=== PATIENT | female | born 1995 | race Caucasian/White ===

== ENCOUNTER 2020-05-19 09:56 | Inpatient (IN) ==
[2020-05-19 11:18] LABS: Hematocrit 35.6 % (37.0-47.0); Hemoglobin 11.4 gm/dL (12.5-16.0); Mean Cell Volume 83.6 fl (78-100); Mean Corpuscular Hemoglobin 26.8 pg (27-31); Mean Platelet Volume 11.4 fl (8-12.5); Platelet Count 301 K/mm3 (150-450); Red Blood Count 4.26 M/mm3 (4.2-5.4); White Blood Count 12.8 K/mm3 (4.0-10.5)
[2020-05-19 11:27] LABS: Albumin * 2.3 gm/dl (3.4-5.0); Anion Gap 16.7 mmol/L (6.8-13.8); BUN/Creatinine Ratio 12.7 (9.0-21.6); Bilirubin, Total 0.2 mg/dL (0.0-1.1); Ca. Corrected For Albumin 9.6 mg/dL (8.4-10.2); Calcium * 8.6 mg/dL (7.9-10.9); Potassium 3.7 mmol/L (3.4-4.6); Total Protein 6.8 gm/dL (6.2-8.2)
[2020-05-19 11:33] LABS: Total Cells Counted 100
[2020-05-19 11:48] LABS: Random Urine Total Protein 22.3 mg/dL (0-12)
[2020-05-19 12:29] LABS: Band 8 % (0-2.0); Basophil 1 % (0-1); Lymphocyte 13 % (20-51); Monocyte 7 % (0-9); Neutrophil 71 % (42-75); Neutrophil # 9.1 K/mm3 (1.3-6.0)
[2020-05-19 12:31] LABS: Platelet Estimate Normal (NORMAL); RBC Morphology Normal (NORMAL)
[2020-05-19] MEDS ORDERED: RINGER'S SOLUTION,LACTATED 1,000 ML IV PRN (17:55)
[2020-05-19] MEDS ORDERED: RINGER'S SOLUTION,LACTATED 1,000 ML IV ONE (17:55)
[2020-05-19] MEDS ORDERED: LIDOCAINE HCL 50 ML VIAL PERI PRN (17:55)
[2020-05-19] MEDS ORDERED: BUTORPHANOL TARTRATE 2 MG/ML VIAL IV PRN ×2 (17:55)
[2020-05-19] MEDS ORDERED: ONDANSETRON 4 MG TAB.RAPDIS PO PRN (17:55)
[2020-05-19] MEDS ORDERED: OXYTOCIN/0.9 % SODIUM CHLORIDE 30 UNITS/500 ML BAG IV ONE ×2 (17:55→18:37)
--- NOTE | 2020-05-19 17:55 | HP ---
Chief Complaint - Chief Complaint Date of Service: 05/19/20 Time of Service: 17:47 Chief Complaint: induction History of Present Illness: 24 year old at 39w 0d who presented to the office for an obstetrical visit and was found to have elevated BPs. She was sent to L&D for BP monitoring and was found to have several elevated BPs. She reports a headache on and off. Denies vb or lof. Fetus is active. She is feeling ctx q 2 minutes. Medical History (Last Reviewed 05/19/20 @ 17:49 by Chantal Elizabeth MD) Anxiety Surgical History: Surgical History (Last Reviewed 05/19/20 @ 17:49 by Chantal Elizabeth MD) [place] teeth extracted Family History: Family History (Last Reviewed 05/19/20 @ 17:49 by Chantal Elizabeth MD) Mother Hypertension Cuevas's palsy affecting Father Alive and well Social History: (Last Updated 05/19/20 @ 10:23 by Chantal Elizabeth MD) Social History: adopted: No Marital status: household members: spouse number of children: 0 current occupational status: employed current occupation: [employer] Highest level of school completed/degree received: Bachelor's degree Sexually Active: Yes Tobacco: Smoking Status: Never smoker Alcohol: alcohol intake: never details: Stopped with Substance Use: substance use type: does not use Dietary Habits: caffeine: Yes caffeine comment: 2-3 daily Type: coffee Review Of Systems (GEN) - Review of Systems Generalized/Overall Review: Present: No Symptoms Reported Misc: All systems neg except as marked Allergies/Adverse Reactions: Allergies Allergy/AdvReac Type Severity Reaction Status Date / Time Sulfa (Sulfonamide Allergy Severe Verified 05/19/20 09:41 Antibiotics) Home Medications: HOME MEDICATIONS acetaminophen 325 mg capsule 325 mg PO Q6H PRN 02/08/20 [Last Taken Unknown] breast pump See Rx Instructions .ROUTE .MEDSUPPLY #1 ea 04/07/20 [Last Taken Unknown] Vits96/Iron Fum/Folic [ S] 1 tab PO DAILY 05/19/20 [Last Taken Unknown] Exam - Exam Vital Signs: Vital Signs - Last Taken Temp 36.9 C 05/19/20 10:20 Pulse 86 05/19/20 10:20 Resp 18 05/19/20 10:20 BP 136/89 05/19/20 10:20 Pulse Ox 98 05/19/20 10:20 Constitutional: Present: Alert, Oriented x3, Cooperative, No distress ENT Exam: Present: hearing grossly normal Eye Exam: bilateral eye: normal inspection Neck: Present: normal inspection Back Exam: Present: normal inspection Breasts: Present: Exam deferred Respiratory: Present: lungs clear, normal breath sounds, no respiratory distress Cardiovascular/Chest: Present: regular rate, rhythm Abdomen: Present: soft, nontender, nondistended /Rectal: Present: Other - 1.5/60/-1 AROM for clear fluid Extremity: Present: non-tender, no calf tenderness Skin Exam: Present: warm/dry, no cyanosis Neurologic: Present: alert, normal mood/affect, oriented x 3 Appearance: Present: appropriate appearance, appropriate insight, neat, no memory impairment Eye contact: Present: cooperative, good eye contact, normal speech Thoughts: Present: normal thought pattern Diagnostic Studies: Abnormal Lab Results 05/19/20 05/19/20 05/19/20 Range/Units 11:00 11:09 11:09 WBC 12.8 H (4.0-10.5) K/mm3 Hgb 11.4 L (12.5-16.0) gm/dL Hct 35.6 L (37.0-47.0) % MCH 26.8 L (27-31) pg RDW 15.0 H (11.5-14.0) % Band Neuts % (Manual) 8 H (0-2.0) % Lymphocytes % (Manual) 13 L (20-51) % Neutrophils # (Manual) 9.1 H (1.3-6.0) K/mm3 Carbon Dioxide 22.0 L (24-32.6) mmol/L Anion Gap 16.7 H (6.8-13.8) mmol/L Random Glucose 67 L (70-110) mg/dL ALT 14 L (19-67) U/L Alkaline Phosphatase 201 H (50-170) U/L Albumin 2.3 L (3.4-5.0) gm/dl U Random Total Protein 22.3 H (0-12) mg/dL Laboratory Results WBC 12.8 K/mm3 (4.0-10.5) H 05/19/20 11:09 RBC 4.26 M/mm3 (4.2-5.4) 05/19/20 11:09 Hgb 11.4 gm/dL (12.5-16.0) L 05/19/20 11:09 Hct 35.6 % (37.0-47.0) L 05/19/20 11:09 MCV 83.6 fl (78-100) 05/19/20 11:09 MCH 26.8 pg (27-31) L 05/19/20 11:09 MCHC 32.0 g/dl (32-36) 05/19/20 11:09 RDW 15.0 % (11.5-14.0) H 05/19/20 11:09 Plt Count 301 K/mm3 (150-450) 05/19/20 11:09 MPV 11.4 fl (8-12.5) 05/19/20 11:09 Neutrophils % (Manual) 71 % (42-75) 05/19/20 11:09 Band Neuts % (Manual) 8 % (0-2.0) H 05/19/20 11:09 Lymphocytes % (Manual) 13 % (20-51) L 05/19/20 11:09 Monocytes % (Manual) 7 % (0-9) 05/19/20 11:09 Basophils % (Manual) 1 % (0-1) 05/19/20 11:09 Neutrophils # (Manual) 9.1 K/mm3 (1.3-6.0) H 05/19/20 11:09 Lymphocytes # (Manual) 1.7 k/mm3 (1.5-3.5) 05/19/20 11:09 Monocytes # (Manual) 0.9 k/mm3 (0.0-1.0) 05/19/20 11:09 Basophils # (Manual) 0.1 k/mm3 (0.0-0.1) 05/19/20 11:09 Platelet Estimate Normal (NORMAL) 05/19/20 11:09 RBC Morphology Normal (NORMAL) 05/19/20 11:09 Sodium 138 mmol/L (132-142) 05/19/20 11:09 Plasma Sodium 137 mmol/L (130-142) 05/19/20 11:09 Potassium 3.7 mmol/L (3.4-4.6) 05/19/20 11:09 Chloride 103 mmol/L (97-106) 05/19/20 11:09 Carbon Dioxide 22.0 mmol/L (24-32.6) L 05/19/20 11:09 Anion Gap 16.7 mmol/L (6.8-13.8) H 05/19/20 11:09 BUN 9 mg/dL (3-23) 05/19/20 11:09 Creatinine 0.71 mg/dL (0.4-1.4) 05/19/20 11:09 Est GFR (Non-Af Amer) 107 mL/min (60-130) 05/19/20 11:09 BUN/Creatinine Ratio 12.7 (9.0-21.6) 05/19/20 11:09 Random Glucose 67 mg/dL (70-110) L 05/19/20 11:09 Calcium 8.6 mg/dL (7.9-10.9) 05/19/20 11:09 Calcium Adj for Albumin 9.6 mg/dL (8.4-10.2) 05/19/20 11:09 Total Bilirubin 0.2 mg/dL (0.0-1.1) 05/19/20 11:09 AST 13 U/L (0-48) 05/19/20 11:09 ALT 14 U/L (19-67) L 05/19/20 11:09 Alkaline Phosphatase 201 U/L (50-170) H 05/19/20 11:09 Total Protein 6.8 gm/dL (6.2-8.2) 05/19/20 11:09 Albumin 2.3 gm/dl (3.4-5.0) L 05/19/20 11:09 Ur Random Creatinine 174.8 mg/dL (60-200) 05/19/20 11:00 U Random Total Protein 22.3 mg/dL (0-12) H 05/19/20 11:00 U [place] Prot/Creat Ratio 128 mg/gm (0-199) 05/19/20 11:00 Assessment/Plan - Narrative Narrative: 24 year old at 39w 0d 1. Proceed with medical IOL due to GHTN: AROM, start pitocin if no cervical change in 2 hours 2. 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
[2020-05-19] MEDS ORDERED: BENZOCAINE/MENTHOL 81 SPRAY CAN TP PRN (18:36)
[2020-05-19] MEDS ORDERED: diphenhydrAMINE HCL 25 MG CAPSULE PO PRN (18:37)
[2020-05-19] MEDS ORDERED: GLYCERIN/WITCH HAZEL LEAF 40 APPL BOX TP PRN (18:37)
[2020-05-19] MEDS ORDERED: BISACODYL 10 MG SUPP.RECT RC PRN (18:37)
[2020-05-19] MEDS ORDERED: SENNOSIDES 8.6 MG TABLET PO PRN (18:37)
[2020-05-19] MEDS ORDERED: HYDROcodone/ACETAMINOPHEN 1 EACH TABLET PO PRN ×2 (18:37)
[2020-05-19] MEDS ORDERED: HYDROCORTISONE 30 APPL TUBE TP PRN (18:37)
[2020-05-19] MEDS ORDERED: NALOXONE HCL 1 MG/1 ML SYRG IV PRN (20:17)
[2020-05-19] MEDS ORDERED: ONDANSETRON HCL/PF 2 MG/ML VIAL IV PRN (20:17)
[2020-05-19] MEDS ORDERED: BUPIVACAINE HCL/0.9 % NACL/PF 250 ML EP PRN (20:17)
[2020-05-19] MEDS ORDERED: BUPIVACAINE HCL/PF 30 ML VIAL EP SCH (20:30)
--- NOTE | 2020-05-19 20:51 | ANES ---
Anesthesia Pre Procedure Eval Vitals/Labs: Last Vital Signs Temp 36.9 C 05/19/20 10:20 Pulse 86 05/19/20 10:20 Resp 18 05/19/20 10:20 BP 136/89 05/19/20 10:20 Pulse Ox 98 05/19/20 10:20 HOME MEDICATIONS acetaminophen 325 mg capsule 325 mg PO Q6H PRN 02/08/20 [Last Taken Unknown] breast pump See Rx Instructions .ROUTE .MEDSUPPLY #1 ea 04/07/20 [Last Taken Unknown] Vits96/Iron Fum/Folic [ S] 1 tab PO DAILY 05/19/20 [Last Taken Unknown] Allergies/Adverse Reactions: Allergies Allergy/AdvReac Type Severity Reaction Status Date / Time Sulfa (Sulfonamide Allergy Severe Verified 05/19/20 09:41 Antibiotics) - Planned Procedure Planned Procedure: [place] Epidural Medication List Reviewed:: Yes Allergies Verified: Yes Medical History (Last Reviewed 05/19/20 @ 20:51 by Natalio Griffiths CRNA) Anxiety Surgical History (Last Reviewed 05/19/20 @ 20:51 by Natalio Griffiths CRNA) [place] teeth extracted Family History (Last Reviewed 05/19/20 @ 20:51 by Natalio Griffiths CRNA) Mother Hypertension Cuevas's palsy affecting Father Alive and well - Family Anesthesia History Family History:: no untoward family reactions to anesthesia, no familial bleeding tendencies, no family history of clotting disorders, no family history of premature - Anesthesia Assessment and Plan ASA Class: PS, II Anesthesia Type Plan: Epidural
--- NOTE | 2020-05-19 21:15 | ANES ---
Anesthesia Procedure Note Procedure Note: ANESTHESIA PROCEDURE NOTE Date of Procedure: 05/19/2020. Time of procedure: 2054. Performed by: Natalio Griffiths CRNA Floor Winder: None. Preprocedure diagnosis: Active labor. Post procedure diagnosis: Same. Procedure: Insertion of labor epidural. Indications: The patient is a 24-year-old female in active labor requesting labor epidural for pain management. Findings: See below. Details of the procedure: The patient was placed in a sitting position. DuraPrep as well as Betadine swabs X3 was applied to the patient's back. Patient was then draped in a sterile fashion. Lidocaine 1% was infiltrated to the skin and subcutaneous tissues at the level of the L3-4 interspace. The epidural space was identified using a 18-gauge Tuohy needle with [id number] technique. Epidural catheter was inserted to a depth of 13 centimeters at skin. Negative test dose was elicited using 3 mL of 1.5% preservative-free lidocaine plus epinephrine 1 200,000. The epidural catheter was then taped and secured in place. A loading dose of 8 mL of 0.25% preservative-free bupivacaine was administered to the epidural catheter after negative aspiration for blood and CSF. EBL: Minimal. Fluids: N/A. Specimen: N/A. Post procedure condition: The patient tolerated the procedure well. No complications were noted. Thank you for this consultation. Natalio Griffiths CRNA
--- NOTE | 2020-05-19 21:15 | ANES ---
Post Anesthesia Assessment - Vital Signs Vitals: Last Vital Signs Temp 36.9 C 05/19/20 10:20 Pulse 86 05/19/20 10:20 Resp 18 05/19/20 10:20 BP 136/89 05/19/20 10:20 Pulse Ox 98 05/19/20 10:20 Airway Patency: Normal - Mental Status Level Of Consciousness: Awake - N/V Assessment Nausea/Vomiting Presence: None Dehydration:: No
--- NOTE | 2020-05-20 04:53 | OR ---
Vacuum-Assist Vaginal Delivery Date:: 05/20/20 Time:: 04:50 Pre Op Diagnosis/Indication for use:: Prolonged second stage Heart Rate Interpretation:: Reassuring EFW:: 3600 grams Station:: +3 Position of the head: OA Cervix:: The cervix was completely dilated and effaced. Maternal- size appropriate for application. The bladder was emptied. Counseling:: Patient counseling: Indications discussed and questions answered. The patient consented to operative delivery. - Details of Procedure: Cup Placement:: Flexion point identified. Cup choice appropriate for application site. Maternal tissue excluded from vacuum cup. Station at application:: +3 Position:: OA Anesthesia Type: Epidural Laceration Type:: Perineal - Vacuum Application: Vacuum Used:: Mushroom Total Time of vacuum applications (minutes):: 1 - 30 seconds Maximum vacuum achieved: cm H Number of pulls/contractions:: 5 Number of involuntary releases:: 3 Vacuum event:: The vacuum was reduced between contractions. There was advancement in station with each pull. - Post Procedure Eval: Infant Sex: Female Weight (Grams): 3,612 Delivery Date: 05/20/20 Delivery Time: 04:24 Score 1 min: 9 Score 5 min: 9 Extraction successful:: No - vacuum did not obtain adequate suction due to hair Amniotic Fluid Color: Clear Placenta Delivery: Spontaneous injury/anomalies:: No Maternal EBL:: 300 Shoulder Dystocia:: No Nuchal Cord: Around neck x1, tight - Additional Comments: Comments:: Cord clamped at the perineum since unable to reduce it Cord blood was collected
[2020-05-20] MEDS: PRENATAL VITS96/IRON FUM/FOLIC 1 TAB TABLET PO SCH (10:06)
[2020-05-20] MEDS: DOCUSATE SODIUM 100 MG CAPSULE PO SCH ×3 (10:06→21:36)
[2020-05-20] MEDS: IBUPROFEN 800 MG TABLET PO PRN ×2 (11:24→19:22)
--- NOTE | 2020-05-20 17:30 | CONS ---
[facility] - General Date of Service: 05/20/20 Narrative: I was consulted by the in-house SUBSTATION OPERATOR APPRENTICE to evaluate a 24-year-old female during the period for an episode of tachycardia that occurred shortly after the patient had given . The patient had induced delivery due to elevated blood pressures that started yesterday. She had a prolonged second stage of labor but the rest of the labor was uneventful however shortly after the delivery she had an episode of an accelerated heart rate that went up to 200. The patient denied any chest pain or shortness of breath and says she has never had these symptoms before. She is a non-smoker does not consume alcohol and denies any drug use. She also denies any childhood cardiac diseases. Bedside evaluation revealed a patient that was relaxed and appeared to be in her normal state of health. Her vitals are now stable and her tachycardia has resolved. However given the presentation of of this unprovoked tachycardia, will place the patient on telemetry for close monitoring and watch her throughout the night. I will reevaluate this patient in the morning. Source: patient - History of Present Illness Timing/Duration: momentarily Allergies/Adverse Reactions: Allergies Sulfa (Sulfonamide Antibiotics) Allergy (Severe, Verified 05/19/20 09:41) Home Medications: Home Medications Medication Instructions Recorded Last Taken acetaminophen 325 mg capsule 325 mg PO Q6H PRN 02/08/20 Unknown breast pump See Rx Instructions .ROUTE 04/07/20 Unknown .MEDSUPPLY #1 ea Vits96/Iron Fum/Folic 1 tab PO DAILY 05/19/20 Unknown [ S] Medications - Medications Current Medications: Current Medications Benzocaine/Menthol (Benzocaine/Menthol 81 [place] Can) 1 spray TP PRN PRN PRN Reason: Perineal discomfort Stop: 06/18/20 18:37 Last Admin: 05/20/20 10:06 Dose: 1 spray Documented by: Docusate Sodium (Docusate Sodium 100 Mg Capsule) 100 mg PO BID BRENDAN Stop: 06/18/20 21:01 Last Admin: 05/20/20 10:06 Dose: 100 mg Documented by: Lactated Ringer's (Lactated Ringers) 1,000 mls @ 125 mls/hr IV .Q8H PRN PRN Reason: HYDRATION Stop: 06/18/20 17:56 Last Infusion: 05/20/20 11:25 Dose: Infused Documented by: Oxytocin/Sodium Chloride (Pitocin 30 Units/Ns 0.9% 500 Ml) 30 units in 500 mls @ 2 mls/hr IV PRN ONE; Protocol Stop: 05/30/20 03:54 Last Infusion: 05/20/20 15:49 Dose: 0 mls/hr Documented by: Bupivacaine HCl/Sodium Chloride (Bupivacaine 0.125% In Ns 0.9% Cassette) 250 mls @ 0 mls/hr EP Q24H PRN; Protocol PRN Reason: LABOR PAIN Stop: 06/18/20 20:18 Last Admin: 05/19/20 21:48 Dose: 12 mls/hr Documented by: Ibuprofen (Ibuprofen 800 Mg Tablet) 800 mg PO Q6H PRN PRN Reason: Mild pain (pain scale 1-3) Stop: 06/18/20 18:38 Last Admin: 05/20/20 11:24 Dose: 800 mg Documented by: Multivit/Folic Acid/Iron ( Vits96/Iron Fum/Folic 1 Tab Tablet) 1 tab PO DAILY BRENDAN Stop: 06/19/20 09:01 Last Admin: 05/20/20 10:06 Dose: 1 tab Documented by: Witch Di/Glycerin (Glycerin/Witch Di [place] 40 Appl Box) 1 appl TP PRN PRN PRN Reason: Perineal discomfort Stop: 06/18/20 18:38 Last Admin: 05/20/20 08:59 Dose: 1 appl Documented by: Physical Examination - Exam Vital Signs: Vital Signs - Last Taken Temp 36.3 C 05/20/20 15:19 Pulse 96 05/20/20 15:19 Resp 18 05/20/20 15:19 BP 131/82 05/20/20 15:19 Pulse Ox 98 05/20/20 15:19 O2 Oxygen Delivery Method Room Air Constitutional: Present: Alert, Oriented x3, Cooperative, Well developed, Young, Morbidly obese ENT Exam: Present: normal ENT inspection, hearing grossly normal, pharynx normal Eye Exam: bilateral eye: normal inspection, PERRL, EOMI Respiratory: Present: chest non-tender, lungs clear, normal breath sounds, no respiratory distress, no accessory muscle use Cardiovascular/Chest: Present: normal peripheral pulses, regular rate, rhythm, no chest tenderness, no edema, no gallop, no JVD, no murmur, no rub Peripheral Pulses: dorsalis-pedis (R): 3+, dorsalis-pedis (L): 3+ - Assessments/Findings (1) Tachycardia Problem: Resolved (2) cardiac complication Problem: Acute
[2020-05-21] MEDS: DOCUSATE SODIUM 100 MG CAPSULE PO SCH ×3 (07:52→20:52)
[2020-05-21] MEDS: IBUPROFEN 800 MG TABLET PO PRN ×2 (07:52→17:04)
[2020-05-21] MEDS: PRENATAL VITS96/IRON FUM/FOLIC 1 TAB TABLET PO SCH ×2 (07:53→15:50)
--- NOTE | 2020-05-21 11:50 | PN ---
Subjective - Date and Time Seen Date: 05/21/20 Time: 11:49 Subjective Narrative: Patient without complaints Objective Objective Narrative: See vital signs - Review of Systems Generalized/Overall Review: Reports: No Symptoms Reported Misc: All systems neg except as marked - Vitals Vitals: Last Vital Signs Temp 36.4 C 05/21/20 07:40 Pulse 78 05/21/20 10:06 Resp 18 05/21/20 07:40 BP 130/70 05/21/20 07:40 Pulse Ox 99 05/21/20 07:40 - Exam Constitutional: Present: Alert, Oriented x3, Cooperative, No distress ENT Exam: Present: hearing grossly normal Neck: Present: normal inspection Breasts: Present: Exam deferred Skin Exam: Present: normal color, warm/dry, no cyanosis Appearance: Present: appropriate appearance, appropriate insight, neat, no memory impairment Eye contact: Present: cooperative, good eye contact Thoughts: Present: normal thought pattern Cauti Physician Documentation - Urinary Catheter Management Urethral (Crum) Urethral Indwelling: No Date of Insertion: 05/19/20 Time of Insertion: 21:55 Date of Removal: 05/20/20 Time of Removal: 03:30 Assessment/Plan Plan Narrative: PPD 1 s/p Doing well Discharge tomorrow - Problems/Diagnosis (1) Gestational hypertension Problem: Acute Qualifiers: Trimester: third trimester Qualified Code(s): O13.3 - Gestational [-induced] hypertension without significant proteinuria, third trimester (2) 39 weeks gestation of Problem: Acute (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
--- NOTE | 2020-05-21 12:16 | PN ---
Progess Note - Interim Date: 05/21/20 Time: 12:15 Narrative: 05/21/20 12:15 Patient had an uneventful night, there was no recurrence of tachycardia so no new treatments were necessary. OB is planning on discharging her tomorrow. There are no further recommendations on my part.
[2020-05-22] MEDS: IBUPROFEN 800 MG TABLET PO PRN ×2 (04:16→12:40)
[2020-05-22 08:27] VITALS: BP 132/71
--- NOTE | 2020-05-22 09:40 | PN ---
Subjective - Date and Time Seen Date: 05/22/20 Time: 09:33 Subjective Narrative: Patient without complaints Objective Objective Narrative: See vital signs - Review of Systems Generalized/Overall Review: Reports: No Symptoms Reported Misc: All systems neg except as marked - Vitals Vitals: Last Vital Signs Temp 36.5 C 05/22/20 07:10 Pulse 65 05/22/20 07:10 Resp 20 05/22/20 07:10 BP 132/71 05/22/20 07:10 Pulse Ox 99 05/22/20 07:10 - Exam Constitutional: Present: Alert, Oriented x3, Cooperative, No distress ENT Exam: Present: hearing grossly normal Neck: Present: normal inspection Breasts: Present: Exam deferred Abdomen: Present: soft, nontender, nondistended /Rectal: Present: Exam deferred Extremity: Present: non-tender, calf tenderness - on the right, leg pain, pedal edema Skin Exam: Present: normal color, warm/dry, no cyanosis Neurologic: Present: alert, normal mood/affect, oriented x 3 Appearance: Present: appropriate appearance, appropriate insight, neat, no memory impairment Eye contact: Present: cooperative, good eye contact, normal speech Thoughts: Present: normal thought pattern Cauti Physician Documentation - Urinary Catheter Management Urethral (Crum) Urethral Indwelling: No Date of Insertion: 05/19/20 Time of Insertion: 21:55 Date of Removal: 05/20/20 Time of Removal: 03:30 Assessment/Plan Plan Narrative: PPD 2 s/p Right calf pain and tenderness: RLE doppler to rule out DVT Otherwise doing well Discharge today as long as negative study - Problems/Diagnosis (1) Gestational hypertension Problem: Acute Qualifiers: Trimester: third trimester Qualified Code(s): O13.3 - Gestational [-induced] hypertension without significant proteinuria, third trimester (2) 39 weeks gestation of Problem: Acute (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
--- NOTE | 2020-05-22 09:43 | DS ---
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 Underwent AROM and progressed to complete dilation. Pitocin starting during pushing. The patient underwent a VAVD. RLE doppler ordered to rule out DVT prior to discharge. Discharge Location: Home Disposition: Home self-care Referrals: Virgilio Hernandez ARNP [Primary Care Provider] - Activity on Discharge:: Activity as tolerated, Pelvic Rest Discharge Diet: General/regular food Additional Patient Instructions (free text): Genaro will follow up with Dr. Elizabeth on June at 11:15 am. Continue to take your vitamins one daily. Drink plenty of fluids, eat lots of fruits and vegetable and lean meat. Rest when your baby rests. Nurse every 2-3 hours, burping between breasts, and when finished. Tigist will follow up with Dr. Jimenez on Saturday May 23, 2020 at 9:15 am. Always use safe sleeping practices, always place Tigist on her back to sleep in her own bed, no co-sleeping. No heavy blankets, bumper pad, stuffed animals or pillows in sleeping area. Tigist weight 7# 15.4 oz today's weight Blood type O positive Today TCB Thank you for choosing [facility] for your special event. We have enjoyed caring for you and your baby, we hope we have exceeded your expectations. If you have any questions or concerns please call the [facility] [phone], [facility] [phone] or PEDS [phone]. Complete Home Medications List: Complete Home Medication List: acetaminophen 325 mg capsule 325 mg PO Q6H PRN 02/08/20 breast pump See Rx Instructions .ROUTE .MEDSUPPLY #1 ea 04/07/20 Vits96/Iron Fum/Folic [ S] 1 tab PO DAILY 05/19/20 - Plan Discharge to:: Home Comment:: Routine Discharge Instructions Follow up in office in:: Other - 4 weeks - Information Weight (Grams): 3,612 Infant Sex: Female Score 1 min: 9 Score 5 min: 9 Infant Complications: None
[2020-05-22] MEDS: PRENATAL VITS96/IRON FUM/FOLIC 1 TAB TABLET PO SCH (12:40)
[2020-05-22] MEDS: DOCUSATE SODIUM 100 MG CAPSULE PO SCH (12:40)
== END 2020-05-22 14:15 | disposition home or self-care (01) | DRG 807 ==
LOC: OBCLINIC 09:56 → OB 17:30
PROVIDERS: ADMIT Obstetrics & Gynecology; ATTEND Obstetrics & Gynecology
DX: R00.0 Tachycardia, unspecified; O69.1XX0 Labor and delivery complicated by cord around neck, with compression, not applicable or unspecified; Z37.0 Single live birth; O70.9 Perineal laceration during delivery, unspecified; O63.1 Prolonged second stage (of labor); O99.43 Diseases of the circulatory system complicating the puerperium; Z14.1 Cystic fibrosis carrier; O13.4 Gestational [pregnancy-induced] hypertension without significant proteinuria, complicating childbirth; Z3A.39 39 weeks gestation of pregnancy